=== PATIENT | female | born 1950 | race African-American/Black ===

== ENCOUNTER → 2017-10-02 | Outpatient (CLI) | payer MEDICARE, OTHER ==
[~2017-10-02] MED LIST: ACET500C5 PO; ALEN5TAB8; AMLO2.5T2; ASPI-465; BARIUM SULF 2% 450 ML BTL (BERRY SMOOTHIE) PO ONE; BEN25 PO; BENA40TA41; GLYB5TAB3; HYDR-3498 PO; HYDR-906 PO; IBUP400T22 PO; IOHEXOL 100 ML ONE; IOHEXOL 350MG/ML 50 ML BTL ONE; NAPR-260 PO; SIMV40TA3; SITA100T8; SOD CHLORIDE 0.9% 100 ML ONE
[2017-10-02 13:19] LABS: BASOPHILS % 0.3 % (0.0-2.0); HEMATOCRIT 39.1 % (37.0-47.0); HEMOGLOBIN 12.7 g/dl (12.0-16.0); LYMPHOCYTES # 1.3 10^3/ul (0.8-2.9); MEAN CORPUSCULAR HEMOGLOBIN 28.7 pg (29.0-33.0); MEAN CORPUSCULAR HGB CONC 32.5 g/dl (32.0-37.0); MEAN CORPUSCULAR VOLUME 88.5 fl (82.0-101.0); MEAN PLATELET VOLUME 10.4 fl (7.4-10.4); MONOCYTE # 0.4 10^3/ul (0.3-0.9); MONOCYTES % 7.3 % (0.0-11.0); NEUTROPHILS % 68.9 % (39.0-77.0); PLATELET COUNT 270 10^3/UL (140-415); RED BLOOD COUNT 4.42 10^6/ul (4.20-5.40); RED CELL DISTRIBUTION WIDTH 11.9 % (11.5-14.5); WHITE BLOOD COUNT 5.8 10^3/ul (4.8-10.8)
[2017-10-02 13:39] LABS: ALBUMIN 2.8 g/dl (3.3-4.9); ALBUMIN/GLOBULIN RATIO 0.71; BILIRUBIN,INDIRECT 0.2 mg/dl (0-1.1); BILIRUBIN,TOTAL 0.2 mg/dl (0.2-1.3); CALCIUM 8.9 mg/dl (8.4-10.2); CHOL/HDL RATIO 1.9 RATIO; CREATININE 0.54 mg/dl (0.44-1.00); POTASSIUM 3.2 mmol/L (3.5-5.1); TOTAL PROTEIN 6.7 g/dl (6.1-8.1)
[2017-10-02 13:53] LABS: C-REACTIVE PROTEIN 0.8 mg/dl (0.0-0.9)
[2017-10-02 14:20] LABS: CANCER ANTIGEN 125 19.5 U/ml (0.0-35.0)
== END | disposition home or self-care (01) ==
LOC: LAB 12:40
PROVIDERS: ATTEND Surgery
DX: R63.4 Abnormal weight loss (principal)
CPT/HCPCS: 74178; 80053; 80061; 82150; 83690; 85025; 85651; 86140; 86301; 86304; Q9967

== ENCOUNTER 2017-10-15 11:41 | Emergency (ER) | payer MEDICARE, OTHER ==
[~2017-10-15] VITALS: Wt 45.0 kg
[~2017-10-15 11:41] MED LIST changes: -BARIUM SULF 2% 450 ML BTL (BERRY SMOOTHIE) PO ONE; -IOHEXOL 100 ML ONE; -IOHEXOL 350MG/ML 50 ML BTL ONE; -SOD CHLORIDE 0.9% 100 ML ONE
--- NOTE | 2017-10-15 13:21 | ERD ---
ER Documentation Chief Complaint Chief Complaint BILAT LEG PAIN, ONSET 2 WEEKS HPI 67-year-old female, with history of poorly controlled diabetes presents to the ER complaining of progressive bilateral mild leg weakness associated with weight loss and diarrhea for the last 2 months, the diarrhea is described as watery, greenish, approximately 3 episodes per day without blood or mucus. The patient denies fevers, chills, no headache, no abdominal pain, no cough. No treatment attempted at this time. ROS SYSTEMIC symptoms: no fever, chills, no night sweats, + unintentional weight loss EYE symptoms: No blurred vision, no eye discharge OTOLARYNGEAL symptoms: No hearing loss. No ear pain, no sore throat CARDIOVASCULAR symptoms: No chest pain or discomfort, no palpitations. PULMONARY symptoms: No dyspnea, no cough, no wheezing. GASTROINTESTINAL symptoms: No abdominal pain, no nausea, no vomiting, + diarrhea MUSCULOSKELETAL symptoms: No arthralgias, no muscle aches. NEUROLOGY symptoms: No confusion, no syncope, no numbness or tingling. SKIN: No rashes Medications Home Meds Active Scripts Diphenoxylate HCl/Atropine (Lomotil 2.5-0.025 mg Tablet) 1 Each Tablet, 1 TAB PO Q6H Y for DIARRHEA for 5 Days, #20 TAB Prov:ADILSON SINGLETARY MD 10/15/17 Nystatin (Nystatin) 100,000 Unit/1 Ml Oral.susp, 6 ML PO QID for 7 Days, #60 ML Prov:ADILSON SINGLETARY MD 10/15/17 Azithromycin* (Zithromax*) 250 Mg Tablet, 250 MG PO .ElvisPACK DIRECTED, #6 TAB TAKE 500 MG (2 TABS) THE FIRST DAY THEN 250 MG (1 TAB) DAYS 2-5 Prov:ADILSON SINGLETARY MD 10/15/17 Reported Medications Thiamine* (Vitamin B-1*) 50 Mg Tablet, 50 MG PO DAILY, TAB 10/15/17 [place]-3 Fatty Acids/Fish Oil ([place] 3 Fish Oil Softgel) 1 Each Capsule.dr, 1 EACH PO DAILY 10/15/17 Aspirin* (Aspirin* EC) 81 Mg Tablet.dr, 81 MG PO DAILY, TAB 10/15/17 Amlodipine-Benazepril (Amlodipine-Benazepril) 5-40 Mg Capsule, 1 TAB PO DAILY, # 30 TAB 10/15/17 Colesevelam Hcl* (Welchol*) 625 Mg Tablet, 1875 MG PO BID, TAB 10/15/17 Fluvastatin* (Fluvastatin*) 40 Mg Capsule, 40 MG PO DAILY, CAP 10/15/17 Hydrocodone/Acetaminophen ([place] 5-325 Tablet) 1 Each Tablet, 1 EACH PO TID, TAB 10/15/17 Discontinued Reported Medications Alendronate Sodium (Fosamax) 5 Mg Tablet 02/27/11 Aspirin (Adult Low Dose Aspirin) 81 Mg Tablet. 02/27/11 Simvastatin (Simvastatin) 40 Mg Tablet 02/27/11 Glyburide* (Glyburide*) 5 Mg Tablet 02/27/11 Amlodipine Besylate* (Norvasc*) 2.5 Mg Tablet 02/27/11 Benazepril Hcl* (Benazepril Hcl*) 40 Mg Tablet 02/27/11 Sitagliptin* (Januvia*) 100 Mg Tablet 02/27/11 Discontinued Scripts Hydrocodone/Acetaminophen ([place] 5-325 Tablet) 1 Each Tablet, 1 TAB PO Q6H Y for PAIN, #10 TAB Prov:SUMA BOOTH 08/29/16 Ibuprofen* (Motrin*) 400 Mg Tab, 400 MG PO Q6, #30 TAB Prov:SUMA BOOTH C 08/29/16 Diphenhydramine Hcl* (Benadryl*) 25 Mg Cap, 25 MG PO Q6, #30 CAP Prov:ROSA ISELA MARTINEZ PA-C 05/22/16 Naproxen* (Naprosyn*) 500 Mg Tablet, 500 MG PO BID Y for PAIN AND/OR INFLAMMATION, #30 TAB Prov:ROSA ISELA MARTIENZ PA-C 05/22/16 Hydrocodone Bit-Acetaminophen* ([place]*) 5-325 Mg Tab, 1 TAB PO Q6 Y for PAIN, # 7 TAB Prov:ROSA ISELA MARTINEZ PA-C 05/22/16 Hydrocodone Bit-Acetaminophen* ([place]*) 5-325 Mg Tab, 1 TAB PO Q6 Y for PAIN, # 20 TAB Prov:SUMA BOOTH 02/15/16 Acetaminophen* (Tylophen*) 500 Mg Capsule, 1 CAP PO Q6H Y for PAIN AND OR ELEVATED TEMP, #20 CAP Prov:SUMA BOOTH 02/15/16 Allergies Allergies: Coded Allergies: No Known Allergies (Verified Allergy, Mild, 10/15/17) PMhx/Soc History of Surgery: Yes (EPIDURAL, cholecystectomy) Anesthesia Reaction: No Hx Neurological Disorder: No Hx Respiratory Disorders: Yes (HX OF SMOKING) Hx Cardiac Disorders: Yes (HTN, HIGH CHOLESTEROL) Hx Psychiatric Problems: No Hx Miscellaneous Medical Probl: Yes (DM, left knee fracture-self healed) Hx Alcohol Use: No Hx Substance Use: No Hx Tobacco Use: Yes (1/2 PACK DAILY) Physical Exam Vitals Vital Signs Date Time Temp Pulse Resp B/P Pulse Ox O2 Delivery O2 Flow Rate FiO2 10/15/17 17:46 68 18 160/77 100 Room Air 10/15/17 11:44 98.4 63 18 167/89 99 Physical Exam Patient is in no acute distress, vital signs stable. Alert and fully oriented. EYES: PERRLA, EOMI, Sclera and conjunctiva appear normal. EARS: Canals clear, tympanic membranes WNL THROAT: Oral mucosa with white plaques involving posterior oropharynx and tongue , normal External Ears, Nose. NECK: Supple, No lymphadenopathy. Full ROM without pain or tenderness. HEART: RRR, no rubs, murmurs, clicks or gallops. LUNGS: Clear to auscultation. ABDOMEN: Soft, non-tender without masses or hepatosplenomegaly. EXTREMITIES: No edema bilaterally. BACK: Full ROM, no deformity, normal back exam NEURO: Cranial nerves grossly intact, no motor or sensory deficit Result Diagram: 10/15/17 1350 10/15/17 1850 Results 24 hrs Laboratory Tests Test 10/15/17 13:50 10/15/17 14:45 10/15/17 15:24 10/15/17 18:50 White Blood Count 6.710^3/ul Red Blood Count 4.3710^6/ul Hemoglobin 12.7g/dl Hematocrit 39.3% Mean Corpuscular Volume 89.9fl Mean Corpuscular Hemoglobin 29.1pg Mean Corpuscular Hemoglobin Concent 32.3g/dl Red Cell Distribution Width 12.3% Platelet Count 71667^3/UL Mean Platelet Volume 10.9fl Neutrophils % 79.6% Lymphocytes % 14.2% Monocytes % 5.5% Eosinophils % 0.1% Basophils % 0.3% Nucleated Red Blood Cells % 0.0/100WBC Neutrophils # 5.310^3/ul Lymphocytes # 1.010^3/ul Monocytes # 0.410^3/ul Eosinophils # 0.010^3/ul Basophils # 0.010^3/ul Nucleated Red Blood Cells # 0.010^3/ul Sodium Level 133mmol/L 132mmol/L Potassium Level 2.8mmol/L 3.8mmol/L Chloride Level 90mmol/L 94mmol/L Carbon Dioxide Level 35mmol/L 37mmol/L Anion Gap 11 5 Blood Urea Nitrogen 8mg/dl 6mg/dl Creatinine 0.50mg/dl 0.44mg/dl Glucose Level 604mg/dl 420mg/dl Calcium Level 8.7mg/dl 8.1mg/dl Total Bilirubin 0.1mg/dl Direct Bilirubin 0.00mg/dl Indirect Bilirubin 0.1mg/dl Aspartate Amino Transf (AST/SGOT) 143IU/L Alanine Aminotransferase (ALT/SGPT) 73IU/L Alkaline Phosphatase 370IU/L Total Protein 6.5g/dl Albumin 2.7g/dl Globulin 3.80g/dl Albumin/Globulin Ratio 0.71 Urine Color YELLOW Urine Clarity SLIGHTLY CLOUDY Urine pH 6.0 Urine Specific [place] 1.024 Urine Ketones NEGATIVEmg/dL Urine Nitrite NEGATIVEmg/dL Urine Bilirubin NEGATIVEmg/dL Urine Urobilinogen NEGATIVEmg/dL Urine Leukocyte Esterase 1+Nidia/ul Urine Microscopic RBC 14/HPF Urine Microscopic WBC 5/HPF Urine Squamous Epithelial Cells FEW/HPF Urine Yeast (Budding) FEW/HPF Urine Hemoglobin NEGATIVEmg/dL Urine Glucose 3+mg/dL Urine Total Protein 1+mg/dl HIV (1&2) Antibody NEGATIVE Current Medications Medications (Trade) Dose Ordered Sig/Alex Route PRN Reason Start Time Stop Time Status Last Admin Dose Admin Lactated Ringer's (Lr) 1,000 ml @ 1,000 mls/hr Q1H ONCE IV 10/15/17 14:00 10/15/17 14:59 DC 10/15/17 14:43 Potassium Chloride 40 meq 40 meq ONCE STAT PO 10/15/17 15:44 10/15/17 15:47 DC 10/15/17 16:44 Potassium Chloride/Sodium Chloride (KCl/1/2 NS) 1,020 ml @ 0 mls/hr Q0M IV 10/15/17 16:00 10/15/17 17:03 Insulin Human Lispro (Humalog) 10 unit ONCE STAT SC 10/15/17 19:59 10/15/17 20:00 DC [place] [id number] Radiology Main Line: [phone] DIAGNOSTIC IMAGING REPORT Patient: ALLISON WORLEY : 1950 Age: 67 Sex: F MR #: [id number] DOS: 10/15/17 1457 Ordering MD: ADILSON SINGLETARY MD Location: E/R Room/Bed: PROCEDURE: XR Chest. CLINICAL INDICATION: Pneumonia. TECHNIQUE: PA and lateral views of the chest were obtained. COMPARISON: CT of the thorax from 10/02/2017. FINDINGS: Cardiac silhouette is normal. There is calcification in the thoracic aorta. Pulmonary vasculature appears normal. There is mild pulmonary hyperinflation. There is persistent patchy reticular nodular infiltrates in the right lower lobe and the lingula of the left upper lobe. Costophrenic angles are well defined and the osseous structures appear intact. IMPRESSION: 1. Persistent patchy reticular nodular infiltrates in the lingula of the left upper lobe and the right lower lobe. Continued follow-up is suggested. RPTAT: AACC Physician Lola Date Time Electronically viewed and signed by Andrew Marks Physician on 10/15/2017 16: 26 JH/ CC: ADILSON SINGLETARY MD [place] [id number] Radiology Main Line: [phone] DIAGNOSTIC IMAGING REPORT Patient: ALLISON WORLEY : 1950 Age: 67 Sex: F MR #: [id number] DOS: 10/02/17 0000 Ordering MD: AMIE ALANIZ MD Location: LAB Room/Bed: PROCEDURE: CT Abdomen and Pelvis without contrast. CLINICAL INDICATION: Abdominal and pelvic pain. Weight loss and diarrhea. TECHNIQUE: CT scan of the abdomen and pelvis without and with intravenous contrast was performed. 80 ml of Omnipaque 350 was used for the intravenous contrast. A triple phase scan was performed with initial noncontrast images through the abdomen and pelvis, arterial phase images through the abdomen, portal venous phase images through the abdomen and pelvis, and delayed postcontrast images through the abdomen. Coronal and sagittal reformatted images were obtained from the axial source images. Images were reviewed on a high-resolution PACS workstation. Total exam DLP is 281.96 mGy-cm. CTDIvol is 2.93 mGy. One or more of the following dose reduction techniques were used: Automated exposure control, adjustment of the mA and/or kV according to patient size, use of iterative reconstruction technique. DICOM images are available. COMPARISON: None. FINDINGS: There is patchy air space disease in the right middle lobe, right lower lobe posteriorly and lingula laterally consistent with pneumonia. Mild emphysematous changes are present at the lung bases. The lung bases are otherwise normal. The liver is normal in size and attenuation. There is no focal hepatic lesion. Surgical clips are present from previous cholecystectomy. The bile ducts are not dilated. The spleen is normal in size. There is no focal splenic lesion. Both adrenals are normal with no enlargement or mass. The pancreas is unremarkable with no mass or evidence of pancreatitis. There is no renal mass or hydronephrosis. There are multiple small nonobstructing bilateral renal calculi. There is no ureteral calculus on either side. The abdominal aorta is not dilated. Calcification is present in the aorta consistent with atherosclerosis. There is no retroperitoneal lymphadenopathy or mass. There is no pelvic lymphadenopathy or mass. The bladder and distal ureters are normal. The periappendiceal region is unremarkable with no evidence of appendicitis. The bowel and mesentery are normal. There is no free fluid or free gas. There are degenerative changes of the lower lumbar spine with hypertrophy of the facet joints at L3-4, L4-5, and L5-S1. The osseous structures are otherwise unremarkable with no fracture or lytic lesion. IMPRESSION: 1. Patchy bilateral pneumonia at the lung bases. 2. Previous cholecystectomy. 3. Multiple small nonobstructing bilateral renal calculi. 4. Atherosclerosis. 5. Degenerative changes of the lower lumbar spine. 6. Otherwise unremarkable CT scan of the abdomen and pelvis. RPTAT: QQ .Duncan Porter MD, MD Date Time Electronically viewed and signed by .Duncan Porter MD, MD on 10/04/2017 19:59 .R/ CC: AMIE ALANIZ MD Procedures/[facility] 67 y/o female patient with poorly controlled diabetes mellitus, presents to the ED c/o mild persistent diarrhea and weakness for 2 months. Vital signs stable, Physical exam revealed multiple white plates on the buccal mucosa, palate, tongue and oropharynx, neurovascular exam intact, no weakness, no focal signs. Differential diagnosis include but not limited to: Malignancy, HIV, persistent hyperglycemia, side effects of medications. Pertinent Data: Labs: CBC: normal, CMP: normal kidney and liver function, Potassium 2.8, Glucose 604, sodium 133, CL 90. Radiology: 1. Persistent patchy reticular nodular infiltrates in the lingula of the left upper lobe and the right lower lobe. Continued follow-up is suggested. Physical examination and clinical presentation consistent most likely with hypokalemia secondary to diarrhea, most likely related to poorly controlled diabetes and gastroparesis and an incidental finding of lung nodular infiltrates. During the ED course the patient remained stable, no new complaints. The patient received treatment with IV fluids, Potassium replacement and insulin presenting overall improvement of the symptoms. Second set of labs showed: Glucose: 420, potassium: 3.8. Results and clinical impression discussed with patient who agrees with management. The patient is stable to be treated outpatient and will be discharged home with a Rx for azithromycin, nystatin and Lomotil. Side effects of prescribed medications (headache, rash, nausea, vomiting, diarrhea) were reviewed. The patient was instructed to follow up with the primary care provider in the next 48h. If symptoms persist, worsen or new symptoms develop, then patient should return to the ED immediately. Instructions explained and given to patient in [place]ian with acknowledgment and demonstrated understanding. Disclaimer: Inadvertent spelling and grammatical errors are likely due to EHR/ dictation software use and do not reflect on the overall quality of patient care. Also, please note that the electronic time recorded on this note does not necessarily reflect the actual time of the patient encounter. Departure Diagnosis: Primary Impression: Hypokalemia Additional Impressions: Pneumonia Oral thrush Condition: Stable Additional Instructions: Call your primary care doctor TOMORROW for an appointment during the next 1-2 days. See the doctor sooner or return here if your condition worsens before your appointment time. Thank you very much for allowing us to participate in your care. Your health and safety is our top priority at [facility]. Have prescriptions filled and follow precisely the directions on the label. Follow-up with primary care provider during the next 4 days and bring all the information and medications prescribed. If illness has not improved in 2 days, then make an appointment with primary care provider. If the provider is unavailable, return to the Emergency Department immediately. ADILSON SINGLETARY MD Oct 15, 2017 13:21
[2017-10-15] MEDS ORDERED: LACTATED RINGER'S 1,000 ML IV ONE (14:00)
[2017-10-15 14:50] LABS: BASOPHILS % 0.3 % (0.0-2.0); EOSINOPHILS % 0.1 % (0.0-7.0); HEMATOCRIT 39.3 % (37.0-47.0); HEMOGLOBIN 12.7 g/dl (12.0-16.0); LYMPHOCYTES % 14.2 % (15.0-51.0); MEAN CORPUSCULAR HEMOGLOBIN 29.1 pg (29.0-33.0); MEAN CORPUSCULAR HGB CONC 32.3 g/dl (32.0-37.0); MEAN CORPUSCULAR VOLUME 89.9 fl (82.0-101.0); MEAN PLATELET VOLUME 10.9 fl (7.4-10.4); MONOCYTE # 0.4 10^3/ul (0.3-0.9); MONOCYTES % 5.5 % (0.0-11.0); NEUTROPHIL # 5.3 10^3/ul (1.6-7.5); NEUTROPHILS % 79.6 % (39.0-77.0); PLATELET COUNT 222 10^3/UL (140-415); RED BLOOD COUNT 4.37 10^6/ul (4.20-5.40); RED CELL DISTRIBUTION WIDTH 12.3 % (11.5-14.5); WHITE BLOOD COUNT 6.7 10^3/ul (4.8-10.8)
[2017-10-15 15:17] LABS: ALBUMIN 2.7 g/dl (3.3-4.9); ALBUMIN/GLOBULIN RATIO 0.71; BILIRUBIN,INDIRECT 0.1 mg/dl (0-1.1); BILIRUBIN,TOTAL 0.1 mg/dl (0.2-1.3); CALCIUM 8.7 mg/dl (8.4-10.2); CREATININE 0.5 mg/dl (0.44-1.00); TOTAL PROTEIN 6.5 g/dl (6.1-8.1)
[2017-10-15 15:32] LABS: ADD UMIC YES; UR ASCORBIC ACID NEGATIVE (NEGATIVE); UR BILIRUBIN (Dip) NEGATIVE (NEGATIVE); UR BLOOD (Dip) NEGATIVE (NEGATIVE); UR BUDDING YEAST FEW /HPF (NONE SEEN); UR CLARITY SLIGHTLY CLOUDY (CLEAR); UR COLOR YELLOW (YELLOW); UR GLUCOSE (Dip) 3+ mg/dL (NEGATIVE); UR KETONES (Dip) NEGATIVE (NEGATIVE); UR LEUKOCYTE ESTERASE (Dip) 1+ Leu/ul (NEGATIVE); UR NITRITE (Dip) NEGATIVE (NEGATIVE); UR RBC 14 /HPF (0-5); UR SPECIFIC GRAVITY (Dip) 1.024 (1.003-1.030); UR SQUAMOUS EPITHELIAL CELL FEW /HPF (FEW); UR TOTAL PROTEIN (Dip) 1+ mg/dl (NEGATIVE); UR UROBILINOGEN (Dip) NEGATIVE (NEGATIVE)
[2017-10-15 15:33] LABS: POTASSIUM 2.8 mmol/L (3.5-5.1)
[2017-10-15] MEDS ORDERED: POTASSIUM CHLORIDE (SR) 20 MEQ TAB PO STA (15:44)
[2017-10-15] MEDS ORDERED: POTASSIUM CHLORIDE 40 MEQ in SOD CHLORIDE 0.45% 1,000 ML IV SCH (16:00)
--- NOTE | 2017-10-15 16:26 | RADRPT ---
PROCEDURE: XR Chest. CLINICAL INDICATION: Pneumonia. TECHNIQUE: PA and lateral views of the chest were obtained. COMPARISON: CT of the thorax from 10/02/2017. FINDINGS: Cardiac silhouette is normal. There is calcification in the thoracic aorta. Pulmonary vasculature ap pears normal. There is mild pulmonary hyperinflation. There is persistent patchy reticular nodular i nfiltrates in the right lower lobe and the lingula of the left upper lobe. Costophrenic angles are w ell defined and the osseous structures appear intact. IMPRESSION: 1. Persistent patchy reticular nodular infiltrates in the lingula of the left upper lobe and the rig ht lower lobe. Continued follow-up is suggested. RPTAT: AACC Physician Lola Date Time Electronically viewed and signed by Andrew Marks Physician on 10/15/2017 16:26 /
[2017-10-15] MEDS ORDERED: HYDR-906 PO (17:18)
[2017-10-15] MEDS ORDERED: FLUV40CA PO (17:19)
[2017-10-15] MEDS ORDERED: COLE625T2 PO (17:20)
[2017-10-15] MEDS ORDERED: ASPI-664 PO (17:21)
[2017-10-15] MEDS ORDERED: AMLO1CAP14 PO (17:21)
[2017-10-15] MEDS ORDERED: OMEG1CAP30 PO (17:22)
[2017-10-15] MEDS ORDERED: THIA50TA10 PO (17:22)
[2017-10-15 19:18] LABS: CALCIUM 8.1 mg/dl (8.4-10.2); CREATININE 0.44 mg/dl (0.44-1.00); POTASSIUM 3.8 mmol/L (3.5-5.1)
[2017-10-15] MEDS ORDERED: INSULIN LISPRO 100 UNIT/ML VIAL SC STA (19:59)
[2017-10-15] MEDS ORDERED: NYST1000 PO (20:04)
[2017-10-15] MEDS ORDERED: AZIT250T94 PO (20:04)
[2017-10-15] MEDS ORDERED: DIPH1TAB PO (20:04)
[2017-10-15] MEDS ORDERED: CANE1EAC26 MC (21:11)
[2017-10-15 21:16] VITALS: BP 135/68; PULSE 58; RESP 18; TEMP 98.4
== END 2017-10-15 21:16 | disposition home or self-care (01) ==
LOC: FTE 11:41 → E/R 21:16
DX: E87.6 Hypokalemia (principal); J18.9 Pneumonia, unspecified organism; B37.0 Candidal stomatitis; E11.9 Type 2 diabetes mellitus without complications; I10 Essential (primary) hypertension; F17.210 Nicotine dependence, cigarettes, uncomplicated; Z79.82 Long term (current) use of aspirin
CPT/HCPCS: 36415; 71020; 80048; 80053; 81001; 82962; 85025; 86703; 96372; 96374; 99284; J1815; J3480; J7120

== ENCOUNTER 2017-10-22 14:51 | Emergency (ER) | payer MEDICARE, OTHER ==
[~2017-10-22] VITALS: Ht 157.5 cm; Wt 42.0 kg
[~2017-10-22 14:51] MED LIST changes: -ACET500C5 PO; -ALEN5TAB8; +AMLO1CAP14 PO; -AMLO2.5T2; -ASPI-465; +ASPI-664 PO; +AZIT250T94 PO; -BEN25 PO; -BENA40TA41; +CANE1EAC26 MC; +COLE625T2 PO; +DIPH1TAB PO; +FLUV40CA PO; -GLYB5TAB3; -HYDR-3498 PO; -IBUP400T22 PO; -NAPR-260 PO; +NYST1000 PO; +OMEG1CAP30 PO; -SIMV40TA3; -SITA100T8; +THIA50TA10 PO
[2017-10-22 15:03] VITALS: Ht 157.5 cm; Wt 42.0 kg
--- NOTE | 2017-10-22 16:51 | ERD ---
ER Documentation Chief Complaint Chief Complaint bilateral knee swelling x 2 days HPI 67-year-old female presents with bilateral knee pain and swelling that she has had for 2 days. Denies any trauma. She is able to ambulate. No numbness or tingling. No fever. No loss of range of motion. Has not taken any medication for pain. ROS All systems reviewed and are negative except as per history of present illness. Medications Home Meds Active Scripts Hydrocodone/Acetaminophen ([place] 5-325 Tablet) 1 Each Tablet, 1 TAB PO Q6H Y for PAIN, #20 TAB Prov:ANABELLE COOK PA-C 10/22/17 Ibuprofen* (Ibuprofen*) 600 Mg Tablet, 600 MG PO Q6, #30 TAB Prov:ANABELLE COOK PA-C 10/22/17 Cane (Cane) 1 Each Each, 1 EACH MC, #1 Prov:RONNIE LEGGETT PA-C 10/15/17 Diphenoxylate HCl/Atropine (Lomotil 2.5-0.025 mg Tablet) 1 Each Tablet, 1 TAB PO Q6H Y for DIARRHEA for 5 Days, #20 TAB Prov:ADILSON SINGLETARY MD 10/15/17 Nystatin (Nystatin) 100,000 Unit/1 Ml Oral.susp, 6 ML PO QID for 7 Days, #60 ML Prov:ADILSON SINGLETARY MD 10/15/17 Azithromycin* (Zithromax*) 250 Mg Tablet, 250 MG PO .ZPACK DIRECTED, #6 TAB TAKE 500 MG (2 TABS) THE FIRST DAY THEN 250 MG (1 TAB) DAYS 2-5 Prov:ADILSON SINGLETARY MD 10/15/17 Reported Medications Thiamine* (Vitamin B-1*) 50 Mg Tablet, 50 MG PO DAILY, TAB 10/15/17 [place]-3 Fatty Acids/Fish Oil ([place] 3 Fish Oil Softgel) 1 Each Capsule.dr, 1 EACH PO DAILY 10/15/17 Aspirin* (Aspirin* EC) 81 Mg Tablet.dr, 81 MG PO DAILY, TAB 10/15/17 Amlodipine-Benazepril (Amlodipine-Benazepril) 5-40 Mg Capsule, 1 TAB PO DAILY, # 30 TAB 10/15/17 Colesevelam Hcl* (Welchol*) 625 Mg Tablet, 1875 MG PO BID, TAB 11/30/17 Fluvastatin* (Fluvastatin*) 40 Mg Capsule, 40 MG PO DAILY, CAP 10/15/17 Hydrocodone/Acetaminophen ([place] 5-325 Tablet) 1 Each Tablet, 1 EACH PO TID, TAB 10/15/17 Discontinued Reported Medications Alendronate Sodium (Fosamax) 5 Mg Tablet 02/27/11 Aspirin (Adult Low Dose Aspirin) 81 Mg Tablet. 02/27/11 Simvastatin (Simvastatin) 40 Mg Tablet 02/27/11 Glyburide* (Glyburide*) 5 Mg Tablet 02/27/11 Amlodipine Besylate* (Norvasc*) 2.5 Mg Tablet 02/27/11 Benazepril Hcl* (Benazepril Hcl*) 40 Mg Tablet 02/27/11 Sitagliptin* (Januvia*) 100 Mg Tablet 02/27/11 Discontinued Scripts Hydrocodone/Acetaminophen ([place] 5-325 Tablet) 1 Each Tablet, 1 TAB PO Q6H Y for PAIN, #10 TAB Prov:SUMA BOOTH 08/29/16 Ibuprofen* (Motrin*) 400 Mg Tab, 400 MG PO Q6, #30 TAB Prov:SUMA BOOTH 08/29/16 Diphenhydramine Hcl* (Benadryl*) 25 Mg Cap, 25 MG PO Q6, #30 CAP Prov:ROSA ISELA MARTINEZ PA-C 05/22/16 Naproxen* (Naprosyn*) 500 Mg Tablet, 500 MG PO BID Y for PAIN AND/OR INFLAMMATION, #30 TAB Prov:ROSA ISELA MARTINEZ PA-C 05/22/16 Hydrocodone Bit-Acetaminophen* ([place]*) 5-325 Mg Tab, 1 TAB PO Q6 Y for PAIN, # 7 TAB Prov:ROSA ISELA MARTINEZ PA-C 05/22/16 Hydrocodone Bit-Acetaminophen* ([place]*) 5-325 Mg Tab, 1 TAB PO Q6 Y for PAIN, # 20 TAB Prov:SUMA BOOTH 02/15/16 Acetaminophen* (Tylophen*) 500 Mg Capsule, 1 CAP PO Q6H Y for PAIN AND OR ELEVATED TEMP, #20 CAP Prov:SUMA BOOTH 02/15/16 Allergies Allergies: Coded Allergies: No Known Allergies (Verified Allergy, Mild, 10/15/17) PMhx/Soc History of Surgery: Yes (EPIDURAL, cholecystectomy) Anesthesia Reaction: No Hx Neurological Disorder: No Hx Respiratory Disorders: Yes (HX OF SMOKING) Hx Cardiac Disorders: Yes (HTN, HIGH CHOLESTEROL) Hx Psychiatric Problems: No Hx Miscellaneous Medical Probl: Yes (DM, left knee fracture-self healed,HIV) Hx Alcohol Use: No Hx Substance Use: No Hx Tobacco Use: Yes (1/2 PACK DAILY) Smoking Status: Current every day smoker FmHx Family History: No diabetes Physical Exam Vitals Vital Signs Date Time Temp Pulse Resp B/P Pulse Ox O2 Delivery O2 Flow Rate FiO2 10/22/17 15:03 98.4 74 18 143/67 99 Physical Exam INITIAL VITAL SIGNS: Reviewed by me GENERAL: Awake, alert and oriented x 4, well appearing, nontoxic, speaking in full sentences. No acute distress HEAD: Atraumatic RESPIRATORY: Clear to auscultation bilaterally. Symmetric chest wall rise. No wheezing or rales. No accessory muscle use. CV: Regular rate and rhythm. No murmurs, rubs, or gallops. : Deffered. EXTREMITIES: Bilateral knees have no erythema, trace edema, full range of motion , no bony abnormalities, sensation to light touch is intact, no warmth Procedures/MDM Patient has bilateral knee pain and swelling. Is been for a few days. She has very mildly elevated blood pressure 143/67 otherwise her vital signs are normal limits. She is well-appearing in no distress. Examination is not concerning for cellulitis or septic joint. She is able to ambulate slowly. She is requesting a cane which I will provide her with one here. X-ray shows a nonspecific soft tissue swelling without any effusion. She is discharged with ibuprofen and [place] for pain. Patient counseled regarding my diagnostic impression and care plan. Prior to discharge all questions answered. Pt agrees with treatment plan and understands strict return precautions. Pt is instructed to follow up with primary care provider within 24-48 hours. Precautionary instructions provided including instructions to return to the ER if not improving or for any worsening or changing symptoms or concerns. Departure Diagnosis: Primary Impression: Knee pain Condition: Stable ANABELLE COOK PA-C Oct 22, 2017 16:51
--- NOTE | 2017-10-22 17:14 | RADRPT ---
PROCEDURE: XR Knee. CLINICAL INDICATION: Bilateral knee pain and swelling TECHNIQUE: AP, lateral and tunnel views of the right and left knee were obtained, a total of 6 tiffanie ges sent to the PACS. COMPARISON: 08/29/2016 FINDINGS: Right knee: There is no evidence of fracture. 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 There is no evidence for dislocation. Mineralization is within normal limits. Mild narrowing of the medial greater than lateral compartments is again seen. The patellofemoral joint appears intact. Mild nonspecific soft tissue swelling is noted without brayden dence of joint effusion. Left knee: No fracture or osseous lesion is identified. There is no evidence for dislocation. Mi neralization is within normal limits. Moderate medial compartment and mild lateral compartment joint space narrowing is present. The patellofemoral joint is intact. Mild soft tissue swelling is seen. There is no evidence of joint effusion. RPTAT:HJJR IMPRESSION: 1. Bilateral medial compartment joint space narrowing slightly greater on the left. 2. Nonspecific bilateral soft tissue swelling without evidence of joint effusion. Physician [place] Date Time Electronically viewed and signed by Physician Gu[place]ito on 10/22/2017 17:14 JR/
[2017-10-22] MEDS ORDERED: HYDR-906 PO (17:31)
[2017-10-22] MEDS ORDERED: IBUP-1542 PO (17:31)
== END 2017-10-22 18:21 | disposition home or self-care (01) ==
LOC: FTE 14:51
DX: M25.561 Pain in right knee (principal); M25.562 Pain in left knee; I10 Essential (primary) hypertension; F17.210 Nicotine dependence, cigarettes, uncomplicated; E11.9 Type 2 diabetes mellitus without complications; Z79.82 Long term (current) use of aspirin; Z79.84 Long term (current) use of oral hypoglycemic drugs

== ENCOUNTER 2017-10-28 15:24 | Emergency (ER) | payer MEDICARE, OTHER ==
[~2017-10-28] VITALS: Ht 157.5 cm; Wt 75.0 kg
[~2017-10-28 15:24] MED LIST changes: +IBUP-1542 PO
[2017-10-28 15:30] VITALS: Ht 157.5 cm; Wt 75.0 kg
[2017-10-28] MEDS ORDERED: FURO-109 PO (19:38)
[2017-10-28] MEDS ORDERED: FUROSEMIDE 20 MG TAB PO ONE (20:00)
[2017-10-28] MEDS ORDERED: NICARDipine HCL 30 MG CAPSULE PO ONE (20:00)
[2017-10-28 20:30] VITALS: BP 154/75; RESP 18; TEMP 98.1
[2017-10-28] MEDS ORDERED: LOPE2CAP PO (20:40)
--- NOTE | 2017-10-28 21:04 | ERD ---
ER Documentation Chief Complaint Chief Complaint neda leg swelling x few days HPI Patient is a 67-year-old female with hypertension and diabetes who presents with bilateral leg swelling. The patient has "water on her legs". She was given meds for potassium recently was seen in the ER a few days ago. She says "I cannot walk". She has no shortness of breath and no chest pain. She does not want to be admitted to the hospital. Upon review of old medical records this is the patient's third visit to the ER since 2016. ROS All systems reviewed and are negative except as per history of present illness. Medications Home Meds Active Scripts Loperamide Hcl* (Imodium*) 2 Mg Capsule, 2 MG PO Q6H Y for DIARRHEA, #20 CAP MAX 16 mg/day Prov:ABNER HO MD 10/28/17 Furosemide* (Lasix*) 40 Mg Tablet, 40 MG PO DAILY, #20 TAB Prov:ABNER HO MD 10/28/17 Hydrocodone/Acetaminophen ([place] 5-325 Tablet) 1 Each Tablet, 1 TAB PO Q6H Y for PAIN, #20 TAB Prov:ANABELLE COOK PA-C 10/22/17 Ibuprofen* (Ibuprofen*) 600 Mg Tablet, 600 MG PO Q6, #30 TAB Prov:ANABELLE COOK PA-C 10/22/17 Diphenoxylate HCl/Atropine (Lomotil 2.5-0.025 mg Tablet) 1 Each Tablet, 1 TAB PO Q6H Y for DIARRHEA for 5 Days, #20 TAB Prov:ADILSON SINGLETARY MD 10/15/17 Nystatin (Nystatin) 100,000 Unit/1 Ml Oral.susp, 6 ML PO QID for 7 Days, #60 ML Prov:ADILSON SINGLETARY MD 10/15/17 Reported Medications Thiamine* (Vitamin B-1*) 50 Mg Tablet, 50 MG PO DAILY, TAB 10/15/17 [place]-3 Fatty Acids/Fish Oil ([place] 3 Fish Oil Softgel) 1 Each Capsule.dr, 1 EACH PO DAILY 10/15/17 Aspirin* (Aspirin* EC) 81 Mg Tablet.dr, 81 MG PO DAILY, TAB 10/15/17 Amlodipine-Benazepril (Amlodipine-Benazepril) 5-40 Mg Capsule, 1 TAB PO DAILY, # 30 TAB 10/15/17 Colesevelam Hcl* (Welchol*) 625 Mg Tablet, 1875 MG PO BID, TAB 10/15/17 Fluvastatin* (Fluvastatin*) 40 Mg Capsule, 40 MG PO DAILY, CAP 10/15/17 Discontinued Reported Medications Hydrocodone/Acetaminophen ([place] 5-325 Tablet) 1 Each Tablet, 1 EACH PO TID, TAB 10/15/17 Discontinued Scripts Cane (Cane) 1 Each Each, 1 EACH , #1 Prov:RONNIE LEGGETT PA-C 10/15/17 Azithromycin* (Zithromax*) 250 Mg Tablet, 250 MG PO .ZPACK DIRECTED, #6 TAB TAKE 500 MG (2 TABS) THE FIRST DAY THEN 250 MG (1 TAB) DAYS 2-5 Prov:ADILSON SINGLETARY MD 10/15/17 Allergies Allergies: Coded Allergies: No Known Allergies (Verified Allergy, Mild, 10/28/17) PMhx/Soc History of Surgery: Yes (EPIDURAL, cholecystectomy) Anesthesia Reaction: No Hx Neurological Disorder: No Hx Respiratory Disorders: Yes (HX OF SMOKING) Hx Cardiac Disorders: Yes (HTN, HIGH CHOLESTEROL) Hx Psychiatric Problems: No Hx Miscellaneous Medical Probl: Yes (DM, left knee fracture-self healed,HIV) Hx Alcohol Use: No Hx Substance Use: No Hx Tobacco Use: Yes (1/2 PACK DAILY) FmHx Family History: coronary disease Physical Exam Vitals Vital Signs Date Time Temp Pulse Resp B/P Pulse Ox O2 Delivery O2 Flow Rate FiO2 10/28/17 15:30 98.1 73 18 215/95 99 Physical Exam Const: No acute distress Head: Atraumatic Eyes: Normal Conjunctiva ENT: Normal External Ears, Nose and Mouth. Neck: Full range of motion..~ No meningismus. Resp: Clear to auscultation bilaterally Cardio: Regular rate and rhythm, no murmurs Abd: Soft, non tender, non distended. Normal bowel sounds Skin: No petechiae or rashes Back: No midline or flank tenderness Ext: B/L leg swelling up to knees Neur: Awake and alert Psych: Normal Mood and Affect Results 24 hrs Current Medications Medications (Trade) Dose Ordered Sig/Alex Route PRN Reason Start Time Stop Time Status Last Admin Dose Admin Furosemide (Lasix) 40 mg ONCE ONCE PO 10/28/17 20:00 10/28/17 20:01 DC 10/28/17 20:32 Nicardipine HCl (Cardene) 30 mg ONCE ONCE PO 10/28/17 20:00 10/28/17 20:01 DC 10/28/17 20:32 Procedures/MDM Patient is a 67-year-old female with hypertension and diabetes who presents with bilateral leg swelling. She likely has CHF with swelling in the legs bilaterally and she was given Lasix. I did offer her admission but she is refusing to stay in the hospital. She will be discharged with prescription for oral Lasix. She will follow-up with her primary doctor within 24-48 hours for evaluation. She can return sooner for any worsening symptoms. Departure Diagnosis: Primary Impression: Swelling Condition: Fair Patient Instructions: Peripheral Edema, Bilateral Referrals: Your doctor Additional Instructions: Call your primary care doctor TOMORROW for an appointment during the next 1-2 days.See the doctor sooner or return here if your condition worsens before your appointment time. ABNER HO MD Oct 28, 2017 21:04
== END 2017-10-28 21:06 | disposition home or self-care (01) ==
LOC: E/R 15:24
DX: R22.41 Localized swelling, mass and lump, right lower limb (principal); R22.42 Localized swelling, mass and lump, left lower limb; I10 Essential (primary) hypertension; E11.9 Type 2 diabetes mellitus without complications; F17.210 Nicotine dependence, cigarettes, uncomplicated; Z79.82 Long term (current) use of aspirin
CPT/HCPCS: 99283

== ENCOUNTER 2017-11-24 14:41 | Inpatient (IN) | END 2017-12-08 21:54 | DRG 690 ==